=== PATIENT | female | born 1940 | race Caucasian/White ===

== ENCOUNTER 2020-01-03 13:24 | Inpatient (IN) ==
[2020-01-03] MEDS ORDERED: ZOFRAN IV PRN (14:20)
[2020-01-03] MEDS ORDERED: TYLENOL PO PRN (14:20)
--- NOTE | 2020-01-03 14:46 | Diag Imaging Result Doc PS360 ---
EXAM: CHEST-2 VIEWS 01/03/2020 HISTORY: Pneumonia TECHNIQUE: PA and lateral chest COMMENT: There is alveolar opacity in the inferior portion of the right upper lobe which was not present on 02/22/2011. There is lobulation of the right hemidiaphragm which is more prominent than on the previous study IMPRESSION: Right upper lobe pneumonia. Electronically signed by Cosme Chambers 01/03/2020 2:43 PM
--- NOTE | 2020-01-03 15:20 | EKG Report ---
Test Performed on : 01/03/2020 2:48:50 PM Test Reason : Dyspnea Blood Pressure : / mmHG Vent. Rate : 074 BPM Atrial Rate : 074 BPM P-R Int : 140 ms QRS Dur : 064 ms QT Int : 402 ms P-R-T Axes : 048 023 040 degrees QTc Int : 446 ms Normal sinus rhythm. Nonspecific ST and T wave abnormality Abnormal ECG When compared with ECG of 18-FEB-2011 10:47, premature atrial complexes. are no longer present Nonspecific T wave abnormality now evident in Inferior leads Nonspecific T wave abnormality now evident in Lateral leads Confirmed by Chuck Ely MD ([id number]) on 01/05/2020 6:07:27 PM
--- NOTE | 2020-01-03 15:46 | HISTORY AND PHYSICAL ---
CHIEF COMPLAINT: Shortness of breath and cough. HISTORY OF PRESENT ILLNESS: Ms. Greenfield is a 79-year-old female who came in earlier to the office with a 3 day history of shortness of breath associated with cough, chest congestion, fever up to 101 degrees Fahrenheit, and blood-tinged yellowish sputum. She denies having any other complaints. She has a history of multiple comorbid conditions including diabetes and coronary artery disease, and all of those conditions are reportedly stable otherwise. PAST MEDICAL HISTORY: 1. Type 2 diabetes mellitus. 2. Hypertension. 3. Coronary artery disease. 4. Dyslipidemia. 5. Chronic back pain. PAST SURGICAL HISTORY: 1. Coronary artery stenting with 2 bare metal stents placed in RCA on 07/07/1997 in [place], [place]. 2. Right knee total arthroplasty. 3. Cholecystectomy. 4. History of brain aneurysm in 1977 for which clips were placed. FAMILY HISTORY: Noncontributory. SOCIAL HISTORY: The patient quit tobacco smoking in 1977. She previously smoked about 3 packs of cigarettes per day from 1953 to 1977. She does not use any recreational drugs and does not drink any alcohol. She is retired and lives here in [place]. Her several years ago. ALLERGIES: No known drug allergies reported. CURRENT HOME MEDICATIONS: 1. Aspirin 81 mg orally once daily. 2. Glipizide 10 mg orally twice daily. 3. Irbesartan 300 mg orally once daily. 4. Januvia 100 mg orally once daily. 5. Lantus 30 units subcutaneously once daily at bedtime. 6. Metformin 1000 mg orally twice daily. 7. Metoprolol ER 25 mg orally once daily. 8. Omeprazole 40 mg orally once daily in the morning. 9. Simvastatin 20 mg orally once daily at bedtime. REVIEW OF SYSTEMS: A full 14-point review of systems has been obtained and has been negative except for what has already been explained in the HPI. PHYSICAL EXAMINATION: VITAL SIGNS: Temperature 98.7 degrees, pulse 74 per minute, respiratory rate 20 per minute, blood pressure 163/103, pulse oximetry 96% on 2 L of oxygen via nasal cannula. GENERAL: The patient is alert and oriented x3. She appears to be slightly tachypneic. She also has a slight audible wheeze. HEENT: Within normal limits. NECK: Supple without any thyromegaly. LYMPHATICS: No lymphadenopathy noted in the neck region. CHEST: Chest wall is nontender. CARDIOVASCULAR SYSTEM: First and second heart sounds are audible without any murmurs or gallops. RESPIRATORY SYSTEM: Bilateral air entry is slightly decreased with bilateral moderate wheeze present on auscultation. GASTROINTESTINAL SYSTEM: The patient is obese. Abdomen is soft and nondistended. Normal bowel sounds are present. MUSCULOSKELETAL SYSTEM: No deformities are present. Range of motion in most of the joints is somewhat limited secondary to osteoarthritis. NEUROLOGIC: No focal deficits are present. GENITOURINARY: Deferred. INTEGUMENTARY: Skin is warm and dry without any rash. IMPRESSION: 1. Dyspnea with right upper lobe pneumonia. 2. Type 2 diabetes mellitus. 3. Coronary artery disease. 4. Hypertension. 5. Dyslipidemia. 6. Hypothyroidism. PLAN: The patient was seen earlier at the office where x-ray was done that showed right upper lobe pneumonia after which we decided to admit her as inpatient. She will be admitted to the medical floor and we will obtain labs including CBC, CMP, D-dimer, magnesium levels, proBNP, troponin, PT/PTT, and ABG, along with repeat chest x-rays done at the hospital. We will also obtain blood cultures and initiate her on ceftriaxone 2 g IV once every 24 hours along with doxycycline 100 mg every 12 hours intravenously. We will continue with Lantus insulin 30 units subcutaneously every 24 hours and discontinue metformin and glipizide for now. We will initiate her on lispro insulin subcutaneously as per sliding scale as per protocol and continue with irbesartan 300 mg daily along with omeprazole 40 mg daily. I am going to continue with her aspirin 81 mg orally once daily since she has a history of coronary artery disease, and would provide her VTE prophylaxis with enoxaparin 40 mg subcutaneously every 24 hours. We will also provide her nebulization treatments with albuterol and ipratropium bromide, and also give her methylprednisolone 60 mg IV q.8 hours. We will provide her general supportive care and follow hospital course. cc: Desirae Hairston MD [facility]TDD
[2020-01-03 15:50] LABS: INR 1.05; PROTIME 13.9 Seconds (11.0-16.0)
[2020-01-03 15:51] LABS: PTT 31.2 Seconds (22.3-41.8)
[2020-01-03 16:06] LABS: ALB/GLOB RATIO 1.5; ALBUMIN 3.7 g/dL (3.5-5.0); CALCIUM 8.5 mg/dL (8.8-10.2); CREATININE 1.1 mg/dL (0.5-0.9); MAGNESIUM 1.8 mg/dL (1.5-2.7); POTASSIUM 4.4 mmol/L (3.5-5.1); TOTAL BILIRUBIN 0.7 mg/dL (0.20-1.00); TOTAL PROTEIN 6.2 g/dL (6.3-8.3)
[2020-01-03 16:06] LABS: ALLEN TEST YES; BE -1.8 mmoll (-3.0-3.0); BLOOD TYPE ARTERIAL; HCO3-(ACT) 23.5 mmoll (20.0-26.0); O2(CT) 16.3 mL/dL (15.0-23.0); O2HB 95.4 % (95.0-99.0); PCO2(98.6) 33 mmHg (35-45); PO2(98.6) 77 mmHg (60-100); SAMPLE BLOOD; SAO2 97.8 % (95.0-100.0); THB 12.1 g/dL (11.5-17.4); pH(98.6) 7.43 (7.35-7.45)
[2020-01-03 16:10] LABS: MODALITY CANNULA
[2020-01-03] MEDS: DUONEB (A & A) INH SCH ×2 (16:14→21:40)
[2020-01-03] MEDS: ROCEPHIN 2 GM in NS 50 ML IV SCH ×2 (16:56→18:55)
[2020-01-03] MEDS: HUMALOG SUBQ SCH ×2 (16:56→20:44)
[2020-01-03] MEDS: SOLU-MEDROL IV SCH (16:58)
[2020-01-03] MEDS: LOVENOX SUBQ SCH (16:59)
[2020-01-03 17:05] LABS: BASO# 0.02 X1000 (0.0-0.2); BASO% 0.4 % (0.0-0.8); EOS# 0.04 X1000 (0.0-0.7); EOS% 0.7 % (0.0-10.0); HEMOGLOBIN 12.3 g/dL (12.0-16.0); IMM GRAN# 0.02 X1000 (0.0-0.04); IMM GRAN% 0.4 % (0.0-0.5); LYMPH% 12.5 % (20.5-51.1); MCH 30.9 PG (27-31); MCHC 32.4 g/dL (33-37); MCV 95.5 FL (81-99); MONO# 0.66 X1000 (0.11-0.59); MONO% 11.8 % (1.7-9.3); MPV 11.6 FL (7.4-10.4); NEUT# 4.17 X1000 (1.4-6.5); NEUT% 74.2 % (42.2-75.2); PLT 154 X1000 (130-400); RBC 3.98 XMIL (4.2-5.4); RDW 12.7 % (11.5-14.5); WBC 5.61 X1000 (4.8-10.8)
[2020-01-03] MEDS: DOXYCYCLINE 100 MG in NS 250 ML IV SCH (18:55)
[2020-01-03] MEDS: NS 1,000 ML IV SCH (18:56)
[2020-01-03] MEDS: LANTUS INSULIN SUBQ SCH (20:45)
[2020-01-03] MEDS: ZOCOR PO SCH (20:46)
[2020-01-04] MEDS: NS 1,000 ML IV SCH ×4 (00:52→22:27)
[2020-01-04] MEDS: SOLU-MEDROL IV SCH ×3 (00:53→18:53)
[2020-01-04] MEDS: DUONEB (A & A) INH SCH ×4 (03:41→23:13)
[2020-01-04] MEDS: DOXYCYCLINE 100 MG in NS 250 ML IV SCH ×2 (04:33→16:59)
[2020-01-04] MEDS: HUMALOG SUBQ SCH ×4 (06:04→22:28)
[2020-01-04] MEDS: PRILOSEC PO SCH (06:05)
[2020-01-04 08:05] LABS: HEMATOCRIT 35.6 % (37.0-47.0); HEMOGLOBIN 11.3 g/dL (12.0-16.0); IMM GRAN# 0.02 X1000 (0.0-0.04); IMM GRAN% 0.9 % (0.0-0.5); LYMPH# 0.36 X1000 (1.2-3.4); LYMPH% 16.4 % (20.5-51.1); MCH 30.3 PG (27-31); MCHC 31.7 g/dL (33-37); MCV 95.4 FL (81-99); MONO# 0.06 X1000 (0.11-0.59); MONO% 2.7 % (1.7-9.3); MPV 11.9 FL (7.4-10.4); NEUT# 1.76 X1000 (1.4-6.5); PLT 166 X1000 (130-400); RBC 3.73 XMIL (4.2-5.4); RDW 12.6 % (11.5-14.5)
--- NOTE | 2020-01-04 08:33 | Diag Imaging Result Doc PS360 ---
EXAM: CT ANGIOGRM PULMONARY ARTERIES 01/04/2020 HISTORY: Dyspnea; Elevated D-Dimer; R/O PTE TECHNIQUE: This exam was performed using automated exposure control, adjustment of mA or kV according to patient size, and/or use of iterative reconstruction technique. COMMENT: 3-D MIPS were performed. There are no filling defects in the pulmonary arteries. The aorta is normal in caliber and there is no evidence of dissection. There are atherosclerotic calcifications in the coronary arteries including the left main and left anterior descending artery. There are no abnormal fluid collections. There are some prominent nodes in the right paratracheal region one of which measures up to 15 mm in size. There is an enlarged precarinal node measuring over 2.1 cm. There is matted right hilar adenopathy. There is patchy perihilar opacity present in the right upper lobe with some minimal nodular and patchy opacities present in the right lower lobe. Minimally increased interstitial opacity is present in both lower lobes. The visualized skeleton is intact. There are no previous CT pulmonary angiogram studies however there is a CT coronary angiogram study dated 12/30/2019. There has been considerable worsening of the right upper lobe opacity since the previous study. The enlarged nodes described above were present at the time the previous study. IMPRESSION: Right upper lobe pneumonia. Mild bronchopneumonia in the right lower lobe. Mediastinal and right hilar adenopathy. Atherosclerotic changes as described. Advise follow-up after treatment. Electronically signed by Cosme Chambers 01/04/2020 8:31 AM
[2020-01-04 08:40] LABS: AGAP 12; BUN 13 mg/dL (8-22); CALCIUM 8.4 mg/dL (8.8-10.2); CHLORIDE 104 mmol/L (98-107); COSMO 284; CREATININE 0.9 mg/dL (0.5-0.9); ESTIMATED GFR > 60; GLUCOSE 215 mg/dL (70-104); POTASSIUM 4.4 mmol/L (3.5-5.1); SODIUM 139 mmol/L (136-145); TCO2 23 mmol/L (25-35)
[2020-01-04] MEDS: AVAPRO PO SCH (09:24)
[2020-01-04] MEDS: TOPROL XL PO SCH (09:24)
[2020-01-04] MEDS: ASPIRIN PO SCH (09:24)
[2020-01-04] MEDS: JANUVIA PO SCH (09:24)
--- NOTE | 2020-01-04 16:36 | PROGRESS NOTE ---
DATE: 01/04/2020 SUBJECTIVE: Patient denies having any acute complaints and states that her breathing has been getting better since yesterday. OBJECTIVE: Vital Signs: Temperature 97.8 degrees with pulse 65 per minute, respiratory rate 18 per minute, blood pressure 146/90, pulse oximetry 97% on room air. General: Patient is alert and oriented x3. She does not appear to be in any acute distress. Cardiovascular System: First and second heart sounds are audible without any murmurs or gallops. Respiratory System: Bilateral air entry is slightly decreased with no rales or rhonchi present on auscultation. Gastrointestinal system: Abdomen is soft and nondistended. Normal bowel sounds are present. Musculoskeletal System: No deformities are present. There is no pedal edema. DIAGNOSTIC DATA: Labs from yesterday were reviewed that showed elevated D-dimer. IMPRESSION: 1. Dyspnea with right upper lobe pneumonia. 2. Elevated D-dimer levels. 3. Type 2 diabetes mellitus. 4. Coronary artery disease. 5. Hypertension. 6. Dyslipidemia. 7. Hypothyroidism. PLAN: The patient will continue to receive IV ceftriaxone along with doxycycline. She will also continue with the oxygen inhalation along with the bronchodilators. Her overall condition has been getting better and I am going to obtain CT angiogram of the pulmonary arteries to rule out any pulmonary thromboembolism since her D-dimer has been elevated and she has been having slight shortness of breath. We will continue with the rest of care including VTE prophylaxis with enoxaparin. Has been on methylprednisolone which will be continued and will also continue with lispro insulin as per sliding scale for control of her glucose levels. Will provide further recommendations as per hospital course. cc: Desirae Hairston MD
[2020-01-04] MEDS: ROCEPHIN 2 GM in NS 50 ML IV SCH (16:59)
[2020-01-04] MEDS: LOVENOX SUBQ SCH (18:54)
[2020-01-04] MEDS: LANTUS INSULIN SUBQ SCH (22:27)
[2020-01-04] MEDS: ZOCOR PO SCH (22:28)
[2020-01-05] MEDS: SOLU-MEDROL IV SCH ×2 (00:39→12:00)
[2020-01-05] MEDS: DUONEB (A & A) INH SCH ×4 (03:46→22:19)
[2020-01-05] MEDS: DOXYCYCLINE 100 MG in NS 250 ML IV SCH ×2 (04:40→16:58)
[2020-01-05] MEDS: HUMALOG SUBQ SCH ×4 (06:02→22:40)
[2020-01-05] MEDS ORDERED: MIRALAX PO PRN (08:12)
[2020-01-05] MEDS ORDERED: MIRALAX PO ONE (08:12)
--- NOTE | 2020-01-05 08:24 | PROGRESS NOTE ---
DATE: 01/05/2020 SUBJECTIVE: Patient denies having any acute complaints this morning and feels better. OBJECTIVE: Vital Signs: Temperature 97.4 degrees, pulse 78 per minute, respiratory rate 18 per minute, blood pressure 128/68, pulse oximetry 98% on room air. General: Patient is alert and oriented x3. She does not appear to be in any acute distress. Cardiovascular System: First and second heart sounds are audible without any murmurs or gallops. Respiratory System: Bilateral lung air entry is slightly decreased but there are no rales or rhonchi present on auscultation. Gastrointestinal System: Abdomen is soft and nondistended. Normal bowel sounds are present. DIAGNOSTIC DATA: The patient had CT angiogram of pulmonary arteries yesterday that showed right upper lobe pneumonia with mild bronchial pneumonia in the right lower lobe. Mediastinum and right hilar adenopathy was seen, but no pulmonary thromboembolism was identified. IMPRESSION: 1. Multilobar right upper and right lower lobe pneumonia. 2. Type 2 diabetes mellitus. 3. Coronary artery disease. 4. Hypertension. 5. Dyslipidemia. 6. Hypothyroidism. PLAN: The patient will continue to receive IV ceftriaxone along with doxycycline and bronchodilators. She will also be continued with supplemental oxygen on as-needed basis and we are going to continue with routine home medications. We will also continue with VTE prophylaxis with enoxaparin 40 mg subcutaneously every 24 hours. She has been on methylprednisolone and I am going to start weaning her off that since she has not been wheezing anymore. We will repeat chest x-ray and labs in the morning tomorrow. She can probably be discharged home in the next couple of days. cc: Desirae Hairston MD
[2020-01-05] MEDS: TOPROL XL PO SCH (09:44)
[2020-01-05] MEDS: AVAPRO PO SCH (09:44)
[2020-01-05] MEDS: ASPIRIN PO SCH (09:44)
[2020-01-05] MEDS: JANUVIA PO SCH (09:44)
[2020-01-05] MEDS: NS 1,000 ML IV SCH ×2 (10:50→16:59)
[2020-01-05] MEDS: ROCEPHIN 2 GM in NS 50 ML IV SCH (14:40)
[2020-01-05] MEDS: LOVENOX SUBQ SCH (17:00)
[2020-01-05] MEDS: ZOCOR PO SCH (22:40)
[2020-01-05] MEDS: LANTUS INSULIN SUBQ SCH (22:41)
[2020-01-06] MEDS: SOLU-MEDROL IV SCH (01:30)
[2020-01-06] MEDS: NS 1,000 ML IV SCH ×2 (02:00→12:23)
[2020-01-06] MEDS: PRILOSEC PO SCH ×2 (02:07→06:35)
[2020-01-06] MEDS: DUONEB (A & A) INH SCH ×4 (03:20→22:52)
[2020-01-06] MEDS: DOXYCYCLINE 100 MG in NS 250 ML IV SCH ×2 (06:04→16:28)
[2020-01-06] MEDS: HUMALOG SUBQ SCH ×4 (06:04→21:15)
--- NOTE | 2020-01-06 07:10 | Diag Imaging Result Doc PS360 ---
EXAM: CHEST-PORTABLE 01/06/2020 HISTORY: Pneumonia TECHNIQUE: AP portable at 0615 COMMENT: The inspiration is much less optimal than on 01/03/2020. There continues to be some opacification in the lower portion of the right upper lobe. Overall considering the degree of inspiration there has been very little change. IMPRESSION: Right upper lobe pneumonia. Electronically signed by Cosme Chambers 01/06/2020 7:08 AM
[2020-01-06 08:55] LABS: ALB/GLOB RATIO 1.2; ALBUMIN 3.4 g/dL (3.5-5.0); CALCIUM 8.5 mg/dL (8.8-10.2); CREATININE 1.1 mg/dL (0.5-0.9); MAGNESIUM 1.8 mg/dL (1.5-2.7); POTASSIUM 4.2 mmol/L (3.5-5.1); TOTAL BILIRUBIN 0.4 mg/dL (0.20-1.00); TOTAL PROTEIN 6.2 g/dL (6.3-8.3)
[2020-01-06 08:59] LABS: BASO# 0.01 X1000 (0.0-0.2); BASO% 0.2 % (0.0-0.8); HEMATOCRIT 36.2 % (37.0-47.0); HEMOGLOBIN 11.4 g/dL (12.0-16.0); IMM GRAN# 0.06 X1000 (0.0-0.04); IMM GRAN% 1.1 % (0.0-0.5); LYMPH# 0.43 X1000 (1.2-3.4); LYMPH% 7.6 % (20.5-51.1); MCH 30.6 PG (27-31); MCHC 31.5 g/dL (33-37); MCV 97.1 FL (81-99); MONO% 3.5 % (1.7-9.3); MPV 11.4 FL (7.4-10.4); NEUT# 4.96 X1000 (1.4-6.5); NEUT% 87.6 % (42.2-75.2); PLT 193 X1000 (130-400); RBC 3.73 XMIL (4.2-5.4); RDW 13.2 % (11.5-14.5); WBC 5.66 X1000 (4.8-10.8)
[2020-01-06] MEDS: ASPIRIN PO SCH (09:56)
[2020-01-06] MEDS: AVAPRO PO SCH (09:56)
[2020-01-06] MEDS: JANUVIA PO SCH (09:56)
[2020-01-06] MEDS: TOPROL XL PO SCH (09:56)
[2020-01-06 10:46] LABS: BANDS 4 % (0-1); LYMPHS 10 % (21-51); MONO 2 % (1-9); SEGS 84 % (42-75)
--- NOTE | 2020-01-06 12:43 | PROGRESS NOTE ---
DATE: 01/06/2020 SUBJECTIVE: Patient denies having any acute complaints and feels better. OBJECTIVE: Vital Signs: Temperature 98.5 degrees, pulse 75 per minute, respiratory rate 18 per minute, blood pressure 107/67, and pulse oximetry 94% on room air. General: Patient is alert and oriented x3. She does not appear to be in any acute distress. Cardiovascular: First and second heart sounds are audible without murmurs or gallops. Respiratory: Bilateral lung air entry slightly decreased, but there are no rales or rhonchi present on auscultation. GI: Abdomen is soft and nondistended. Normal bowel sounds are present. DIAGNOSTIC DATA: CBC shows WBC count of 5.66, hemoglobin 11.4 and hematocrit 36.2 with platelet counts of 193,. In comparison her hemoglobin and hematocrit were pretty much the same as 11.3 and 35.6 two days ago on 01/04/2020. Comprehensive metabolic panel showed glucose levels of 198. Rest of the comprehensive metabolic panel was nondiagnostic. Chest x-ray obtained this morning showed right upper lobe pneumonia that is slightly improved as compared to the chest x-ray on admission. IMPRESSION: 1. Multilobar right upper and right lower lobe pneumonia. 2. Type 2 diabetes mellitus. 3. Coronary artery disease. 4. Hypertension. 5. Dyslipidemia. 6. Hypothyroidism. PLAN: The patient will continue to receive IV ceftriaxone along with doxycycline and bronchodilators. I am going to discontinue the methylprednisolone, and continue with supplemental oxygen on as-needed basis. She will also continue with VTE prophylaxis with enoxaparin 40 mg subcutaneously every 24 hours. Her overall condition has been getting better, and she will most likely be discharged home tomorrow morning if continues to improve. cc: Desirae Hairston MD [facility]
[2020-01-06] MEDS: ROCEPHIN 2 GM in NS 50 ML IV SCH (15:41)
[2020-01-06] MEDS: LOVENOX SUBQ SCH (16:36)
[2020-01-06] MEDS: LANTUS INSULIN SUBQ SCH (21:14)
[2020-01-06] MEDS: ZOCOR PO SCH (21:14)
[2020-01-07] MEDS: DUONEB (A & A) INH SCH (03:45)
[2020-01-07] MEDS: NS 1,000 ML IV SCH ×2 (03:47→09:37)
[2020-01-07] MEDS: PRILOSEC PO SCH (06:32)
[2020-01-07] MEDS: HUMALOG SUBQ SCH ×2 (06:32→11:25)
[2020-01-07] MEDS: AVAPRO PO SCH (09:38)
[2020-01-07] MEDS: TOPROL XL PO SCH (09:38)
[2020-01-07] MEDS: DOXYCYCLINE 100 MG in NS 250 ML IV SCH (09:38)
[2020-01-07] MEDS: JANUVIA PO SCH (09:38)
[2020-01-07] MEDS: ASPIRIN PO SCH (09:38)
[2020-01-07 11:29] VITALS: BP 168/83
--- NOTE | 2020-01-07 22:18 | DISCHARGE SUMMARY ---
ADMISSION DATE: 01/03/2020 DISCHARGE DATE: 01/07/2020 DISCHARGE DIAGNOSIS: 1. Dyspnea secondary to multilobar right upper and right lower lobe pneumonia. 2. Type 2 diabetes mellitus. 3. Coronary artery disease. 4. Hypertension. 5. Dyslipidemia. 6. Hypothyroidism. HOSPITAL COURSE: Ms. Gabriel is a 79-year-old female who came in to the office initially with two days' history of shortness of breath associated with cough and chest congestion along with fever up to 101 degrees Fahrenheit and blood tinged yellowish sputum. She was noted to have right upper lobe pneumonia after which she was admitted to the hospital for inpatient care. She was started on IV ceftriaxone along with doxycycline and nebulization treatments plus IV Solu-Medrol. She was also given VTE prophylaxis with enoxaparin. She did have a slightly elevated D-dimer because of which we obtained CT scan of the chest to rule out any pulmonary thromboembolism. CT angiogram of the pulmonary arteries was negative for any thromboembolism, although it did come from right upper lobe and smaller right lower lobe infiltrates. The patient's condition has gradually improved and because of which we are going to let her go home today. DISCHARGE MEDICATIONS: 1. Cefuroxime 500 mg orally twice daily for 10 days. 2. Doxycycline 100 mg orally twice daily for 10 days. 3. Benzonatate 200 mg orally 3 times a day as needed for cough. 4. Aspirin 81 mg orally once daily. 5. Glipizide 10 mg orally twice daily. 6. Irbesartan 300 mg orally once daily. 7. Januvia 100 mg orally once daily. 8. Lantus 30 units subcutaneously once daily at bedtime. 9. Metformin 1000 mg orally twice daily. 10. Metoprolol ER 25 mg orally once daily. 11. Omeprazole 40 mg orally once daily in the morning. 12. Simvastatin 20 mg orally once daily at bedtime. FOLLOW-UP: She will follow with me at the office in approximately 5 days. CONDITION: Stable. cc: Desirae Hairston MD
== END 2020-01-07 15:40 | disposition home or self-care (01) | DRG 195 ==
LOC: DIRADM 13:24 → EDIPHOLD 13:52 → 3N 18:50
PROVIDERS: ADMIT Internal Medicine; ATTEND Internal Medicine